=== PATIENT | male | born 1940 | race Caucasian/White ===

== ENCOUNTER 2017-12-12 13:19 | Emergency (ER) | payer MEDICARE, MEDICAID, SELFPAY ==
[2017-12-12 13:24] VITALS: BP 153/107; PULSE 108; RESP 26; TEMP 36.5; O2SAT 95; BMI 29.2
--- NOTE | 2017-12-12 13:43 | XR_ITS ---
XR chest portable Ordering Physician: Linnea Holden MD Patient Age: 77 years: Male HISTORY: ITS.REASON: soa dyspnea. TECHNIQUE: AP portable upright chest. COMPARISON :05/24/2017. FINDINGS Distorted lordotic view of chest . We again see the cardiomegaly with left ventricular configuration. A generous aortic knob shadow. Sternotomy. Multiple sternotomy wires from the median sternotomy. Pacemaker overlying left chest with leads intact new feature since 2017. This limited study suggest the lungs are clear with some upper generous all may vascularity difficult borderline CHF. Difficult additional infiltrate at the medial left base on this study but similar appearance was seen in this area on the May 24, 2017 CXR IMPRESSION: Limited very lordotic portable chest which distorts the chest . Cardiomegaly. Pacemaker. Sternotomy. Mild vascular congestion likely present . t question minimal early infiltrate medial left base. If respiratory symptoms persist suggest follow-up more optimal upright chest, preferably 2 view chest
--- NOTE | 2017-12-12 14:33 | [facility].EDSOB ---
ED Disposition Clinical Impression: Shortness of breath Disposition: Left Against Medical Advice Condition on Discharge: work up incomplete per pt request Additional Instructions: Follow up with Dr. Massey; return to ER if complete recommended work up desired. Referrals: Fabrizio Massey MD [Primary Care Provider] - - Critical Care Critical Care Time: No Attestation: On 12/12/17, the high probability of a clinically significant, sudden or life threatening deterioration of the following system(s) required my full and direct attention, intervention and personal management. The time I documented below is in addition to time spent performing reported procedures but includes the following listed in this critical care notation. Medical Decision Making Vital Signs: 12/12/17 13:24 12/12/17 18:22 Temperature 97.7 F Temperature Source Oral Pulse Rate [Right Brachial] 108 H Respiratory Rate 26 H Blood Pressure [Right Arm] 153/107 Blood Pressure Mean [Right Arm] 122 Blood Pressure Source [Right Arm] Automatic Cuff Blood Pressure Position [Right Arm] Sitting 02 Sat by Pulse Oximetry 95 Oxygen Delivery Method Nasal Cannula Room Air Oxygen Flow Rate (LPM) 2 - Lab Data Lab results reviewed: Yes: I reviewed the patient's lab results. Lab Results 12/12/17 13:50: Lactic Acid 2.3 H 12/12/17 15:23: WBC 11.4 H, RBC 4.43 L, Hgb 11.4 L, Hct 38.7 L, MCV 87.4, MCH 25.7 L, MCHC 29.4 L, RDW 16.0, Plt Count 195, MPV 9.1, Neut % (Auto) 86.5 H, Lymph % (Auto) 8.3 L, [place] % (Auto) 3.2, Eos % (Auto) 1.8, Baso % (Auto) 0.1, Neut # (Auto) 9.8 H, Lymph # (Auto) 0.9, [place] # (Auto) 0.4, Eos # (Auto) 0.2, Baso # (Auto) 0.0, Total Counted 100, Neutrophils % (Manual) 86 H, Lymphocytes % (Manual) 7 L, Monocytes % (Manual) 5, Eosinophils % (Manual) 2, Platelet Estimate Normal, RBC Morphology Normal 12/12/17 15:23: Sodium 138, Potassium 3.4 L, Chloride 102, Carbon Dioxide 25, Anion Gap 14.4, BUN 22 H, Creatinine 1.14, Estimated Creat Clear 70, Estimated GFR 62, Est GFR ( Amer) 76, Glucose 274 H, Calcium 8.1 L, Total Bilirubin 0.9, AST 21, ALT 20, Alkaline Phosphatase 161 H, Total Creatine Kinase 61, CK-MB (CK-2) 1.5, CK-MB (CK-2) Rel Index 2.5, Troponin I 0.14 H, Total Protein 7.7, Albumin 3.1 L, Globulin 4.6 H, Albumin/Globulin Ratio 0.7 L Troponin indeterminate, possibly due to mild congestion as seen on CXR. Result diagrams: 12/12/17 15:23 12/12/17 15:23 Orders (Tests/Meds): ED MEDICATIONS Discontinued Medications Generic Name Dose Route Start Last Admin Trade Name Freq PRN Reason Stop Dose Admin Albuterol/Ipratropium 3 ml 12/12/17 13:45 12/12/17 13:50 Duoneb 3ml Neb IH 12/12/17 13:46 3 ml ONCE ONE Administration Methylprednisolone Sodium Succinate 125 mg 12/12/17 13:45 12/12/17 13:50 Solu-Medrol 125mg/2ml Vial IV 12/12/17 13:46 125 mg ONCE ONE Administration ORDERS Category Date Time Status Rapid Influenza A&B Antigens Stat Lab 12/12/17 13:43 Ordered Blood Culture Stat Micro 12/12/17 13:50 Ordered - Radiology Data #1 Image(s): Chest Image Reviewed: Yes I reviewed the patient's radiology image, Yes I have reviewed radiologist's interpretation Preliminary Findings: Abnormal Tortuous aorta seen previously. Cardiomegaly. Sternotomy wires. Pacemaker. Waiting for renal function to return so we may do CT scan for further evaluation Radiologist reading reviewed: somewhat lordotic, some congestion noted. - ECG Data Tracing #1 Her heart rate 103. Old LAD old right bundle branch block with some fusion complexes noted in the past with similar findings today. - [place] Inquiry Pt receiving controlled substance: No Medical Decision Making Narrative: TC to lab; results still pending. Will release soon. Addendum written at 2130 on December 12, 2017: Patient left AMA prior to CT scan; had initially been waiting for release of renal function studies prior to orderin
[2017-12-12 14:50] LABS: Lactic Acid 2.3 mmol/L (0.4-2.0)
[2017-12-12 15:02] LABS: Reflex Lactic Add Lactic Reflex
[2017-12-12 15:51] LABS: Basophils % 0.1 % (0.1-2.0); Eosinophils # 0.2 K/mm3 (0.0-0.4); Eosinophils % 1.8 % (0.1-12.0); Hematocrit 38.7 % (42.0-52.0); Hemoglobin 11.4 g/dL (14.1-18.0); Lymphocytes # 0.9 K/mm3 (0.7-4.5); Lymphocytes % 8.3 K/mm3 (10-50); Mean Corpuscular HGB Conc 29.4 g/dL (31.8-35.4); Mean Corpuscular Hemoglobin 25.7 pg (27.0-31.2); Mean Corpuscular Volume 87.4 fl (80-94); Mean Platelet Volume 9.1 fl (7.4-10.4); Monocytes # 0.4 K/mm3 (0.1-1.0); Monocytes % 3.2 % (1.7-9.3); Neutrophils # 9.8 K/mm3 (1.8-7.8); Neutrophils % 86.5 % (37.0-80.0); Platelet Count 195 K/mm3 (142-424); Red Blood Count 4.43 M/mm3 (4.60-6.20); White Blood Count 11.4 K/mm3 (4.8-10.8)
[2017-12-12 15:57] LABS: MANUAL DIFFERENTIAL MANUAL DIFFERENTIAL (MANUAL DIFF)
[2017-12-12 16:17] LABS: Alanine Aminotransferase 20 U/L (12-78); Albumin Level 3.1 gm/dL (3.4-5.0); Albumin/Globulin Ratio 0.7 (1.1-1.8); Alkaline Phosphatase 161 U/L (46-116); Anion Gap 14.4 mEq/L (5-15); Aspartate Amino Transferase 21 U/L (15-37); Bilirubin,Total 0.9 mg/dL (0.2-1.0); Blood Urea Nitrogen 22 mg/dL (7-18); CKMB Relative Index 2.5 U/L (0-4.0); Calcium 8.1 mg/dL (8.5-10.1); Carbon Dioxide 25 mmol/L (21.0-32.0); Chloride 102 mmol/L (98-107); Creatine Kinase 61 U/L (39-308); Creatine Kinase MB 1.5 mg/ml (0.0-3.6); Creatinine Clearance Estimated 70 mL/min (0-300); Creatinine,Serum 1.14 mg/dL (0.70-1.30); Estimated Glomerular Filt Rate 62 ml/min (>60); GFR (African American) 76 ML/MIN (>60); Globulin 4.6 gm/dl (1.3-3.2); Glucose 274 mg/dL (74-106); Potassium 3.4 mmoL/L (3.5-5.1); Sodium 138 mmol/L (136-145); Total Protein,Serum 7.7 gm/dL (6.4-8.2); Troponin I 0.14 ng/ml (0.00-0.06)
[2017-12-12 16:23] LABS: Eosinophils % 2 % (0-3); Lymphocytes % 7 % (10-50); Monocytes % 5 % (2-9); Neutrophils % 86 % (42-76); Total Cells Counted 100
[2017-12-12 16:24] LABS: Platelet Estimate Normal; RBC Morphology Normal
== END 2017-12-12 18:22 | disposition left against medical advice (07) ==
PROVIDERS: Emergency Provider Emergency Medicine; Family Provider Emergency Medicine; PCP Emergency Medicine
DX: R06.02 Shortness of breath (principal); J44.9 Chronic obstructive pulmonary disease, unspecified; F17.210 Nicotine dependence, cigarettes, uncomplicated; E11.9 Type 2 diabetes mellitus without complications; Z53.21 Procedure and treatment not carried out due to patient leaving prior to being seen by health care provider; Z79.01 Long term (current) use of anticoagulants; Z79.02 Long term (current) use of antithrombotics/antiplatelets; Z79.82 Long term (current) use of aspirin; Z79.4 Long term (current) use of insulin; Z79.899 Other long term (current) drug therapy
CPT/HCPCS: 36415; 71045; 80053; 82550; 82553; 83605; 84484; 85007; 85025; 93005; 96374; 99284